=== PATIENT | male | born 1940 | race Caucasian/White ===

== ENCOUNTER → 2021-10-27 | Outpatient (CLI) | payer BC, MEDICARE ==
[~2021-10-27] MED LIST: ASPI81TA26 PO; CHLO25TA PO; ERGO500029 PO; FURO20TA2 PO; GLYB2.5T7 PO; LOSA50TA28 PO; MAGN400T33 PO; METF500T13 PO; METO1TAB33 PO; OMEG1CAP85 PO; SEMA7TAB2 PO; SIMV40TA20 PO; VASC1CAP2 PO
== END ==
LOC: M LABSMTC 10:42
PROVIDERS: ATTEND Anesthesiology
DX: Z11.52 Encounter for screening for COVID-19 (principal)

== ENCOUNTER 2021-11-01 06:21 | Day surgery (SDC) | payer MEDICARE ==
[~2021-11-01] VITALS: Ht 162.6 cm; Wt 87.1 kg
[~2021-11-01 06:21] MED LIST changes: +CYCLOPENTOLATE 1% OPHTH SOLN 2 ML BTL OS SCH; +FLURBIPROFEN 0.03% OPHTH SOLN 2.5 ML OS SCH; +PHENYLEPHRINE 2.5% OPHTH SOL 2ML OS SCH; +TETRACAINE 0.5% OPHTH SOLN 4ML OS SCH
[2021-11-01] MEDS ORDERED: LIDOCAINE 1% SDV 5ML VIAL As Ordered ONE (06:33)
[2021-11-01] MEDS ORDERED: LR 1,000 ML IV SCH (07:00)
[2021-11-01 09:40] VITALS: BP 151/72
== END 2021-11-01 09:50 | disposition home or self-care (01) ==
LOC: M SDC 06:21
PROVIDERS: ATTEND Ophthalmology
DX: H25.12 Age-related nuclear cataract, left eye (principal); I10 Essential (primary) hypertension; I25.2 Old myocardial infarction; E78.5 Hyperlipidemia, unspecified; R73.03 Prediabetes; K21.9 Gastro-esophageal reflux disease without esophagitis; Z79.84 Long term (current) use of oral hypoglycemic drugs; Z79.82 Long term (current) use of aspirin; Z79.899 Other long term (current) drug therapy
CPT/HCPCS: 66984; V2788

== ENCOUNTER 2024-11-25 12:30 | Day surgery (SDC) | payer MEDICARE ==
[~2024-11-25] VITALS: Ht 162.6 cm; Wt 83.5 kg
[~2024-11-25 12:30] MED LIST changes: +AMLO2.5T3 PO; +CYCLOPENTOLATE 1% OPHTH SOLN 2 ML BTL OD SCH; -CYCLOPENTOLATE 1% OPHTH SOLN 2 ML BTL OS SCH; +EZET10TA21 PO; +FINA5TAB2 PO; +FLURBIPROFEN 0.03% OPHTH SOLN 2.5 ML OD SCH; -FLURBIPROFEN 0.03% OPHTH SOLN 2.5 ML OS SCH; +JARD1TAB3 PO; +LR 1,000 ML IV SCH; +MIDAZOLAM INJ 2 MG/2 ML VIAL As Ordered ONE; +OMEG-28 PO; -OMEG1CAP85 PO; +OMEP-173 PO; +PHENYLEPHRINE 2.5% OPHTH SOL 2ML OD SCH; -PHENYLEPHRINE 2.5% OPHTH SOL 2ML OS SCH; +PRAZ1CAP PO; +ROSU40TA81 PO; +TETRACAINE 0.5% OPHTH SOLN 4ML OD SCH; -TETRACAINE 0.5% OPHTH SOLN 4ML OS SCH
[2024-11-25] MEDS: LIDOCAINE 1% SDV 5 ML VIAL As Ordered ONE (16:17)
[2024-11-25] MEDS: CEFUROXIME 1 MG/0.1 ML INTRACAMERAL INJ As Ordered ONE (16:20)
[2024-11-25 16:44] VITALS: BP 151/70; TEMP 97.3; O2SAT 96
== END 2024-11-25 17:22 | disposition home or self-care (01) ==
LOC: M SDC 12:30
PROVIDERS: ATTEND Ophthalmology
DX: H25.11 Age-related nuclear cataract, right eye (principal); I10 Essential (primary) hypertension; E78.00 Pure hypercholesterolemia, unspecified; R73.03 Prediabetes; K21.9 Gastro-esophageal reflux disease without esophagitis; Z79.899 Other long term (current) drug therapy; Z79.82 Long term (current) use of aspirin; Z79.84 Long term (current) use of oral hypoglycemic drugs; Z90.49 Acquired absence of other specified parts of digestive tract; Z90.89 Acquired absence of other organs; I25.2 Old myocardial infarction
CPT/HCPCS: 66984; J0697; J2250; J3010; V2788

== ENCOUNTER 2024-12-23 07:37 | Day surgery (SDC) | payer MEDICARE ==
[~2024-12-23] VITALS: Ht 162.6 cm; Wt 82.6 kg
[~2024-12-23 07:37] MED LIST changes: -CYCLOPENTOLATE 1% OPHTH SOLN 2 ML BTL OD SCH; -EZET10TA21 PO; +EZET10TA57 PO; -FLURBIPROFEN 0.03% OPHTH SOLN 2.5 ML OD SCH; -LR 1,000 ML IV SCH; -MIDAZOLAM INJ 2 MG/2 ML VIAL As Ordered ONE; -PHENYLEPHRINE 2.5% OPHTH SOL 2ML OD SCH; +SYNJ1TAB15 PO; -TETRACAINE 0.5% OPHTH SOLN 4ML OD SCH
[2024-12-23 09:08] VITALS: TEMP 97.4
[2024-12-23 09:38] VITALS: BP 132/64; O2SAT 94
== END 2024-12-23 09:39 | disposition home or self-care (01) ==
LOC: M OPP 07:37
PROVIDERS: ATTEND Internal Medicine Gastroenterology
DX: Z12.11 Encounter for screening for malignant neoplasm of colon (principal); R19.5 Other fecal abnormalities; D12.3 Benign neoplasm of transverse colon; K64.0 First degree hemorrhoids; K22.70 Barrett's esophagus without dysplasia; R12 Heartburn; Z86.73 Personal history of transient ischemic attack (TIA), and cerebral infarction without residual deficits; Z79.82 Long term (current) use of aspirin; Z79.84 Long term (current) use of oral hypoglycemic drugs; Z79.899 Other long term (current) drug therapy